=== PATIENT | male | born 1940 | race Caucasian/White ===

== ENCOUNTER 2021-06-02 10:50 | Emergency (ER) | payer MEDICARE, BC ==
--- NOTE | 2021-06-02 11:38 | EDM.PDOC ---
ED HPI GENERAL MEDICAL PROBLEM - General Chief Complaint: General Stated Complaint: SOB, HAD CHILLS, DIZZY Time Seen by Provider: 06/02/21 11:38 Source of Information: Reports: Patient, RN Notes Reviewed History Limitations: Reports: No Limitations - History of Present Illness INITIAL COMMENTS - FREE TEXT/NARRATIVE: Saurabh reports complaints of onset of chills last night, shaking, nausea and body aches. He reports he is not sure if he had a fever or not. this morning at 0400 he woke up and the chills were gone, however he continues to have nausea and body aches. He states he has drank Tea today. He denies intake of any food or OTC medications for his symptoms. He denies any other issues or concerns. Saurabh states his brother in law last night and he is worried about making others sick if he is around them. Moderna Vaccine October-November 2020. 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, Peripheral Psychiatric History: Reports: None Hematologic History: Reports: None Oncologic (Cancer) History: Reports: Other (See Below) Other Oncologic History: skin - Infectious Disease History Infectious Disease History: Reports: Chicken Pox, Mumps, Shingles - Past Surgical History HEENT Surgical History: Reports: Tonsillectomy GI Surgical History: Reports: Colonoscopy Musculoskeletal Surgical History: Reports: Knee Replacement Social & Family History - Tobacco Use Tobacco Use Status *Q: Never Tobacco User - Caffeine Use Caffeine Use: Reports: Coffee - Recreational Drug Use Recreational Drug Use: No ED ROS GENERAL - Review of Systems Review Of Systems: See Below Constitutional: Reports: Chills, Other (body aches) HEENT: Reports: No Symptoms Respiratory: Reports: No Symptoms Cardiovascular: Reports: No Symptoms Endocrine: Reports: No Symptoms GI/Abdominal: Reports: Nausea. Denies: Abdominal Pain, Black Stool, Bloody Stool, Constipation, Diarrhea, Decreased Appetite, Distension, Hematemesis, Vomiting : Reports: No Symptoms, Other (Last void 90 minutes ago) Musculoskeletal: Reports: No Symptoms Skin: Reports: No Symptoms Neurological: Reports: Dizziness (off and on ), Weakness. Denies: Confusion, Headache, Numbness, Paresthesia, Pre-Existing Deficit, Seizure, Syncope, Tingling, Tremors, Trouble Speaking, Difficulty Walking, Change in Speech, Gait Disturbance Psychiatric: Reports: No Symptoms Hematologic/Lymphatic: Reports: No Symptoms Immunologic: Reports: No Symptoms ED EXAM, GENERAL - Physical Exam Exam: See Below Exam Limited By: No Limitations General Appearance: Alert, WD/WN, No Apparent Distress Eye Exam: Bilateral Eye: Normal Inspection, PERRL Ears: Normal External Exam, Normal Canal, Hearing Grossly Normal, Normal TMs Throat/Mouth: Normal Inspection, Normal Lips, Normal Gums, Normal Oropharynx, Normal Voice, No Airway Compromise Head: Atraumatic, Normocephalic Neck: Normal Inspection, Supple, Non-Tender, Full Range of Motion. No: Lymphadenopathy (R), Lymphadenopathy (L) Respiratory/Chest: No Respiratory Distress, Lungs Clear, Normal Breath Sounds, No Accessory Muscle Use, Chest Non-Tender. No: Crackles, Rales, Rhonchi, Wheezing, Stridor, Accessory Muscle Use, Retractions, Splinting Cardiovascular: Normal Peripheral Pulses, Regular Rate, Rhythm, No Edema, No Gallop, No Murmur, No Rub Peripheral Pulses: 4+: Radial (L), Radial (R) GI/Abdominal: Normal Bowel Sounds, Soft, Non-Tender, No Distention, No Mass (Male) Exam: Deferred Rectal (Males) Exam: Deferred Back Exam: Normal Inspection, Full Range of Motion. No: CVA Tenderness (R), CVA Tenderness (L) Extremities: Normal Inspection, Normal Range of Motion, Non-Tender, No Pedal Edema, Normal Capillary Refill Neurological: Alert, Oriented, Normal Gait, No Motor/Sensory Deficits Psychiatric: Normal Affect, Normal Mood Skin Exam: Warm, Dry, Intact, Normal Color, No Rash Lymphatic: No Adenopathy Course - Vital Signs Last Recorded V/S: Last Vital Signs Temp 36.5 C 06/02/21 11:10 Pulse 97 06/02/21 11:10 Resp 18 06/02/21 11:10 BP 130/65 06/02/21 11:10 Pulse Ox 94 L 06/02/21 11:10 - Orders/Labs/Meds Labs: Laboratory Tests 06/02/21 Range/Units 11:55 SARS CoV-2 RNA Rapid JANE Negative Meds: Medications Discontinued Medications Generic Name Dose Route Start Last Admin Trade Name Francois PRN Reason Stop Dose Admin Ondansetron HCl 4 mg 06/02/21 11:53 06/02/21 11:58 Ondansetron 4 Mg Tab.Dis PO 06/02/21 11:54 4 mg ONETIME ONE Administration - Re-Assessments/Exams Free Text/Narrative Re-Assessment/Exam: Patient care of COVID reviewed with patient, all his questions were answered. He is in agreement with plan. Departure - Departure Time of Disposition: 12:21 Disposition: Home, Self-Care 01 Condition: Good Clinical Impression: Nausea, Chills, Viral illness - Discharge Information Instructions: Nausea, Adult, [id number] Referrals: PCP,None [Primary Care Provider] - Forms: ED Department Discharge Additional Instructions: You have been evaluated for chills, nausea which is most likely a viral illness. Your COVID test today was negative. It is best for you to quarantine for 10 days and repeat the COVID test in 5 to 7 days. You can repeat this test through your primary provider or a same day clinic near you. Use ondansetron as directed for nausea. Drink plenty of fluids to stay hydrated. Eat a bland diet Bananas, rice, applesauce and toast to keep your strength up. If you are dehydrated, this can cause dizziness. Return for any worsening, issues or concerns. Take acetaminophen as needed for fever/pain. Sepsis Event Note (ED) - Evaluation Sepsis Screening Result: No Definite Risk - Focused Exam Vital Signs: Vital Signs Temp Pulse Resp BP Pulse Ox 06/02/21 11:10 36.5 C 97 18 130/65 94 L 06/02/21 11:09 36.5 C 97 18 130/65 94 L - Assessment/Plan Assessment:: Nausea, Chills, Viral illness Plan: Patient evaluated for chills, nausea which is most likely a viral illness. COVID test today was negative. It is best to quarantine for 10 days and repeat the COVID test in 5 to 7 days. Repeat this test through your primary provider or a same day clinic near you. Use ondansetron as directed for nausea. Drink plenty of fluids to stay hydrated. Eat a bland diet Bananas, rice, applesauce and toast to keep strength up. If dehydrated, this can cause dizziness. Return for any worsening, issues or concerns. Take acetaminophen as needed for fever/pain.
[2021-06-02] MEDS ORDERED: Ondansetron 4 MG Tab.DIS PO ONE (11:53)
== END 2021-06-02 12:45 | disposition home or self-care (01) ==
LOC: JP.ED 10:50
DX: B34.9 Viral infection, unspecified (principal); R11.0 Nausea; Z88.0 Allergy status to penicillin; Z91.013 Allergy to seafood; Z79.899 Other long term (current) drug therapy; Z20.822 Contact with and (suspected) exposure to COVID-19
CPT/HCPCS: 99283; A9270; U0002